=== PATIENT | male | born 1935 | race Caucasian/White ===

== ENCOUNTER 2022-11-15 12:35 | Inpatient (IN) ==
[2022-11-15] MEDS ORDERED: IOPAMIDOL 100 ML BOTTLE IV ONE (12:36)
[2022-11-15 13:09] LABS: POC Calcium, Ionized 1.13 (1.16-1.32); POC Creatinine 1.4 (0.6-1.2); POC Potassium 3.7 (3.3-5.1)
--- NOTE | 2022-11-15 13:35 | Emergency Department Note ---
GI Bleed HPI General Chief complaint: Rectal Bleed Stated complaint: blood in stool, fainting Time Seen by Provider: 11/15/22 12:40 Source: patient Mode of arrival: wheelchair Limitations: no limitations History of Present Illness HPI Narrative: Narrative: Patient presents the ED with complaints of blood in the stool x1 week. He states that his stools have been black and full of blood. He states this happened about a year ago and had a complete work-up and they could not determine what the source of the bleed was. He also reports that his syncopal event about 5 days ago where he fell down onto his bottom. He denies any head trauma, loss of consciousness, vision changes, nausea, vomiting, diarrhea, const ipation, lidya trauma, cardiac chest pain, shortness of breath, heart palpitations. Patient denies any other alleviating or aggravating factors. Related Data Home Medications Medication Instructions Recorded Confirmed losartan 50 mg tablet 50 mg PO QDAY 09/05/20 06/29/21 Previous Rx's Medication Instructions Recorded bupropion HCl 200 mg tablet,12 hr 200 mg PO QDAY #90 ea 04/21/19 sustained-release amlodipine 2.5 mg tablet 2.5 mg PO QPM 30 days #30 tabs 09/18/20 fluoxetine 10 mg capsule 10 mg PO QDAY 30 days #30 caps 09/18/20 fluoxetine 20 mg capsule 20 mg PO QDAY 30 days #30 caps 09/18/20 hydrocodone 5 mg-acetaminophen 325 1 tab PO Q4H PRN pain #12 tabs 04/30/21 mg tablet pantoprazole 40 mg tablet,delayed 40 mg PO QDAY 90 days #90 tabs 09/01/21 release Allergies Allergy/AdvReac Type Severity Reaction Status Date / Time No Known Drug Allergies Allergy Verified 11/15/22 12:42 Review of Systems ROS ROS Narrative: Narrative: All systems ED: reviewed and negative except as stated. [facility] Narrative Patient History Narrative: Narrative: Medical/Surgical/Family History All Active Problems (Updated 11/15/22 @ 14:46 by Agustin Hardwick DO) Syncope (Acute) Acute kidney injury (Acute) Rhabdomyolysis (Acute) Acute dehydration (Acute) Acute GI bleeding (Acute) Acute blood loss anemia (Acute) Claudication of left lower extremity (Acute) Tinea unguium (Chronic) Ingrowing nail (Chronic) Cellulitis of left toe (Chronic) Low back pain (Chronic) Generalized atherosclerosis (Chronic) Unspecified osteoarthritis, unspecified site (Chronic) Chest pain (Chronic) Disease of stomach and duodenum, unspecified (Chronic) Dyspnea (Chronic) Peptic ulcer (Chronic) Pancreatitis (Chronic ~2014) Joint pain (Chronic ~1989) Hyperlipidemia (Chronic ~1979) Hypertension (Chronic ~2015) Prostate cancer (Chronic ~1989) Bleeding tendency (Chronic) Anxiety (Chronic ~1999) Acid reflux (Chronic ~2016) Restless leg (Chronic) Previous back surgery (Chronic) H/O exploratory laparotomy (Chronic) H/O prostatectomy (Chronic) Rectal bleeding (Acute) SOB (shortness of breath) (Acute) Insomnia (Chronic) Elevated blood pressure, situational (Chronic) Depression (Chronic) History of alcohol abuse (Chronic) History of tobacco abuse (Chronic) History of pancreatitis (Chronic) History of GI bleed (Chronic) History of prostate cancer (Chronic) Medical History (Updated 11/15/22 @ 14:46 by Agustin Hardwick DO) Acid reflux (~2016) Allergic reaction Anemia Anxiety (~1999) Bleeding tendency Cellulitis of left toe Chest pain Claudication of left lower extremity Depression Disease of stomach and duodenum, unspecified Dyspnea Elevated blood pressure, situational Generalized atherosclerosis History of alcohol abuse History of GI bleed History of pancreatitis History of prostate cancer History of tobacco abuse Hyperlipidemia (~1979) Hypertension (~2015) Ingrowing nail Insomnia Joint pain (~1989) Low back pain Pancreatitis (~2014) Peptic ulcer Prostate cancer (~1989) Restless leg Tinea unguium Unspecified osteoarthritis, unspecified site Surgical History H/O exploratory laparotomy 2013 - no cancer found H/O prostatectomy 1991 History of colonoscopy (~2017) History of pancreatectomy Previous back surgery Lumbar back surgery in the late 1970s Family History Mother Hypertension Father Heart attack Brother CAD (coronary artery disease) Social History Smoking Status: Never smoker Alcohol Intake Frequency: former alcohol drinker Substance Use: does not use Exam Narrative Narrative: Narrative: General Limitations: no limitations General appearance: Absent in distress ENT ENT: Present normal oropharynx and mucous membranes moist Respiratory Respiratory: Present normal lung sounds bilaterally; Absent respiratory distress Cardiovascular Cardiovascular: Present regular rate and normal rhythm Adbominal Abdominal: Present soft and normal bowel sounds; Absent tenderness or rigidity Rectal Rectal: Present heme (+) stool; Absent hemorrhoids Extremities Extremities: Present normal capillary refill Back Back: Absent CVA tenderness (R) or CVA tenderness (L) Neurological Neurological: Present alert and oriented X3 Psychiatric Psychiatric: Present normal affect and normal mood Skin Skin: Present warm (WNL) and intact Course Course Course Narrative: Was evaluated for concerns of a GI bleed. Physical exam showed that patient definitely had some dark stools that were positive for blood. There were no external hemorrhoids. Labs show that his hemoglobin was 6.6 down from his previous of 12 on his last lab values. CT abdomen pelvis obtained with image reviewed myself negative for any active bleed. Diverticulitis, bowel ischemia were all considered and basically ruled out by the CT abdomen pelvis. Patient was given IV Protonix. 2 units of packed red blood cells were ordered for the patient. Case was discussed with general surgeon who has agreed to be consulted on the case for endoscopy. Case was discussed with hospitalist who has agreed to admit the patient. Plan of care was discussed with patient he expressed verbal understanding and agreement. Consultations Consultation #1: Case discussed with on-call general surgeon, Dr. Duffy, who has agreed to perform endoscopy if patient is admitted to the hospital service. Time: 14:15 Consultation #2: Case was discussed with hospitalist, Dr. Guevara, who has agreed to admit the patient. Time: 14:43 Vital Signs Vital signs: Vital Signs Temperature 97.0 F 11/15/22 12:37 Pulse Rate 76 11/15/22 12:37 Respiratory Rate 18 11/15/22 12:37 Blood Pressure 146/52 11/15/22 12:37 Pulse Oximetry (%) 95 11/15/22 12:37 Oxygen Delivery Method 11/15/22 12:37 Temperature 97.0 F 11/15/22 12:37 Pulse Rate 76 11/15/22 12:37 Respiratory Rate 12 11/15/22 13:46 Blood Pressure 116/49 11/15/22 13:46 Pulse Oximetry (%) 95 11/15/22 12:37 Oxygen Delivery Method 11/15/22 12:37 [facility] MDM Narrative Medical decision making narrative: Narrative: Differential Diagnosis Differential Diagnosis: GI bleed, diverticulitis Medical Records Medical records reviewed: Yes I reviewed the patient's medical records. Lab Data Lab results reviewed: Yes I reviewed the patient's lab results. Result diagrams: 11/15/22 13:01 Labs: Lab Results 11/15/22 11/15/22 Range/Units 13:01 13:04 WBC 9.4 (4.5-11.0) K/mcL RBC 2.18 L (4.63-6.08) M/mcL Hgb 6.6 L* (13.7-17.5) g/dL Hct 20.6 L* (40.1-51.0) % POC Hct 21.0 L (41-55) MCV 94.5 (80.0-100.0) fL MCH 30.3 (26.0-34.0) pg MCHC 32.0 (31.0-36.0) g/dL RDW 14.3 (11.5-14.5) % Plt Count 249 (140-440) K/mcL MPV 9.9 (8.8-12.5) fL Immature Gran % (Auto) 0.4 (0.0-0.5) % Neut % (Auto) 79.7 H (38.0-78.0) % Lymph % (Auto) 11.4 L (15.5-49.0) % [place] % (Auto) 8.0 (1.0-12.0) % Eos % (Auto) 0.3 (0.0-7.0) % Baso % (Auto) 0.2 (0.0-2.0) % Lymph # (Auto) 1.07 L (1.50-4.80) K/mcL [place] # (Auto) 0.75 (0.10-0.90) K/mcL Eos # (Auto) 0.03 (0.00-0.70) K/mcL Baso # (Auto) 0.02 (0.00-0.30) K/mcL Immature Gran # 0.04 (0.00-0.05) K/mcl Absolute Neutrophils 7.44 (1.80-8.00) K/mcL POC Sodium 139 (133-145) POC Potassium 3.7 (3.3-5.1) POC Chloride 107 (96-108) POC Total CO2 23.0 (22-30) POC BUN 25 H (6-20) POC Creatinine 1.4 H (0.6-1.2) POC Glucose 127 H (70-105) POC WB Ioniz Calcium 1.13 L (1.16-1.32) Radiology Data Radiology results reviewed: Yes I reviewed the patient's radiology results. Radiology results narrative: CT abdomen pelvis obtained with image reviewed myself, I agree with radiologist interpretation EKG Data EKG #1: EKG attestation: Yes I reviewed and interpreted this EKG. EKG shows normal: sinus rhythm Rate: normal Rhythm: PAC's [place]/QRS: normal Heart block present: None ST segment elevation in: None ST segment depression in: None QTc: normal QRS morphology: Present normal Interpretation: no acute changes Core Measures AMI Core Measures Followed: Yes Discharge Plan Patient/Caregiver Discharge Instructions Pt seen by SPRING ASSEMBLER/PA only: No Clinical Impression: Acute GI bleeding, Acute blood loss anemia Patient Disposition: Home, Self-Care Condition: Fair Follow up with: Anya Barger MD [Primary Care Provider] - Prescriptions: No Action bupropion HCl 200 mg tablet sustained-release 12 hr 200 mg PO QDAY Qty: 90 3RF amlodipine 2.5 mg tablet 2.5 mg PO QPM 30 Days Qty: 30 0RF Rx Instructions: for high blood pressure in the PM fluoxetine 10 mg capsule 10 mg PO QDAY 30 Days Qty: 30 0RF fluoxetine 20 mg capsule 20 mg PO QDAY 30 Days Qty: 30 0RF Rx Instructions: take with the 10mg capsule pantoprazole 40 mg tablet,delayed release (DR/EC) 40 mg PO QDAY 90 Days Qty: 90 0RF Rx Instructions: Patient needs follow up appt before refill ends losartan 50 mg tablet 50 mg PO QDAY hydrocodone-acetaminophen 5-325 mg tablet 1 tab PO Q4H PRN (Reason: pain) Qty: 12 0RF
[2022-11-15 13:55] LABS: Basophils # (Auto) 0.02 K/mcL (0.00-0.30); Basophils % (Auto) 0.2 % (0.0-2.0); Eosinophils # (Auto) 0.03 K/mcL (0.00-0.70); Eosinophils % (Auto) 0.3 % (0.0-7.0); Hematocrit 20.6 % (40.1-51.0); Hemoglobin 6.6 g/dL (13.7-17.5); Lymphocytes # (Auto) 1.07 K/mcL (1.50-4.80); Lymphocytes % (Auto) 11.4 % (15.5-49.0); Mean Cell Volume 94.5 fL (80.0-100.0); Mean Platelet Volume 9.9 fL (8.8-12.5); Monocytes # (Auto) 0.75 K/mcL (0.10-0.90); Neutrophils % (Auto) 79.7 % (38.0-78.0); Platelet Count 249 K/mcL (140-440); RBC 2.18 M/mcL (4.63-6.08); Red Cell Distribution Width 14.3 % (11.5-14.5); WBC 9.4 K/mcL (4.5-11.0)
[2022-11-15] MEDS ORDERED: PANTOPRAZOLE 40 MG VIAL IV ONE (13:58)
--- NOTE | 2022-11-15 14:34 | Cat Scan Report ---
History: Rectal bleeding for one week, prior prostate cancer TECHNIQUE: Abdomen was first imaged without contrast from the diaphragm through the symphysis pubis. Intravenous nonionic contrast was injected. The patient was then rescanned during the arterial and venous phase. Sagittal, coronal and MIPS images were created. The radiation exposure was limited using dose reduction technology. FINDINGS: Lung bases are clear. Liver is normal in size. There is gas within the intrahepatic bile ducts as well as the common bile duct. This is probably secondary to a prior papillotomy at the time of the prior cholecystectomy. The gallbladder has been removed. The bile ducts are not dilated and there is no inflammation in the the nella hepatis. The pancreas is normal without evidence of a mass or inflammation. The spleen is normal in size and homogeneous. The adrenals are normal. A 1.7 cm cortical cyst is present laterally in the middle third of the right kidney. The kidneys are otherwise normal and there is no stone mass or hydronephrosis. Abdominal aorta is normal in caliber. There is a patent stent in the superior mesenteric artery. There is good blood flow into the superior mesenteric. There is eccentric plaque at the origin of the celiac artery but there is no stenosis. Inferior mesenteric artery is normal. There are two arteries supplying each kidney, which are normal in caliber. The peripheral branches of the visceral arteries appear normal and nonthrombosed. No enhancing lesion or vascular anomaly are seen. Large and small intestine are normal without apparent mass or colitis. There are noninflamed diverticula in the sigmoid colon. The prostate has been removed and there are several surgical clips deep in the pelvis. Urinary bladder is unopacified but appears normal. No ascites mass or adenopathy are present within the abdomen or pelvis. Bone windows show no lytic or blastic lesion. There is degenerative disc disease and arthritis at multiple levels in the lumbar spine and lower thoracic spine. IMPRESSION: No evidence of active gastrointestinal bleeding. The source of bleeding is not identified on this study. Diverticulosis without diverticulitis Air within the bile ducts which may be secondary to the prior cholecystectomy and probable papillotomy Dr. Hardwick was called with the report Interpreted and Authenticated by: Porter Gray 11/15/22
--- NOTE | 2022-11-15 15:13 | Internal Med History&Physical ---
HPI History of Present Illness Patient information: Note initiated : 11/15/22 at 3:10 pm Service Date, if different from initiated Date: [] Patient: Martínez Tony a 87 y/o M admitted on for blood in stool, fainting. Chief Complaint: [black stool] Chief complaint: black stool History of present illness: Mr. Tony is a 87 year old M history of hypertensions, anxiety, presenting with 1 week history of black stool. In addition, he had an episode of syncope 4 days ago. Last prior episode of GI bleeding was 1 and half years ago. Over the past week, he has noticed black stool. He denies any bloody stool. He denies any abdominal pain. He has nausea but denies any vomiting or hematemesis. He denies any chest pain. He denies any palpitations. He is complaining of mild shortness of breath. He had an episode of syncope and he passed out for around 5 hours 4 days ago. He stated that he has been taking aspirin for pain lately. Vital signs at ED presentation cervical for borderline hypotension's. Labs significant for anemia with H&H 6.6 and 20.6, respectively. BUN/Cr 25/1.4. Stool occult blood screening positive. Admission requested called for GI bleeding with symptomatic anemia. Constitutional Constitutional: Present weakness; Absent chills, excessive sweating, fatigue or fever(s) EENT Eyes: Absent blurry vision, change in vision, loss of vision or other visual disturbances Ears: Absent decreased hearing or tinnitus Nose, mouth and throat: Absent abnormal hearing, dry mouth, headache(s), nasal congestion or sore throat Cardiovascular Cardiovascular: Absent chest pain, chest pain at rest, edema, irregular heart rhythm or palpatations Respiratory Respiratory: Present dyspnea; Absent cough or wheezing Gastrointestinal Gastrointestinal: Present melena; Absent abdominal pain, constipation, diarrhea, nausea or vomiting Musculoskeletal Musculoskeletal: Absent back pain, deformity, limited range of motion, muscle cramps, muscle weakness or numbness Integumentary Integumentary: Absent lesions, rash or wounds Neurological Neurological: Present syncope; Absent focal weakness, headache(s) or numbness Psychiatric Psychiatric: Absent anxiety, depression or hallucinations PFSH PFSH All Active Problems (Updated 11/15/22 @ 15:17 by David Chavez MD) Stage 1 acute kidney injury (Acute) Syncope (Acute) Acute kidney injury (Acute) Rhabdomyolysis (Acute) Acute dehydration (Acute) Acute GI bleeding (Acute) Acute blood loss anemia (Acute) Claudication of left lower extremity (Acute) Tinea unguium (Chronic) Ingrowing nail (Chronic) Cellulitis of left toe (Chronic) Low back pain (Chronic) Generalized atherosclerosis (Chronic) Unspecified osteoarthritis, unspecified site (Chronic) Chest pain (Chronic) Disease of stomach and duodenum, unspecified (Chronic) Dyspnea (Chronic) Peptic ulcer (Chronic) Pancreatitis (Chronic ~2014) Joint pain (Chronic ~1989) Hyperlipidemia (Chronic ~1979) Hypertension (Chronic ~2015) Prostate cancer (Chronic ~1989) Bleeding tendency (Chronic) Anxiety (Chronic ~1999) Acid reflux (Chronic ~2016) Restless leg (Chronic) Previous back surgery (Chronic) H/O exploratory laparotomy (Chronic) H/O prostatectomy (Chronic) Rectal bleeding (Acute) SOB (shortness of breath) (Acute) Insomnia (Chronic) Elevated blood pressure, situational (Chronic) Depression (Chronic) History of alcohol abuse (Chronic) History of tobacco abuse (Chronic) History of pancreatitis (Chronic) History of GI bleed (Chronic) History of prostate cancer (Chronic) Medical History (Updated 11/15/22 @ 15:17 by David Chavez MD) Acid reflux (~2016) Allergic reaction Anemia Anxiety (~1999) Bleeding tendency Cellulitis of left toe Chest pain Claudication of left lower extremity Depression Disease of stomach and duodenum, unspecified Dyspnea Elevated blood pressure, situational Generalized atherosclerosis History of alcohol abuse History of GI bleed History of pancreatitis History of prostate cancer History of tobacco abuse Hyperlipidemia (~1979) Hypertension (~2015) Ingrowing nail Insomnia Joint pain (~1989) Low back pain Pancreatitis (~2014) Peptic ulcer Prostate cancer (~1989) Restless leg Tinea unguium Unspecified osteoarthritis, unspecified site Surgical History H/O exploratory laparotomy 2013 - no cancer found H/O prostatectomy 1991 History of colonoscopy (~2017) History of pancreatectomy Previous back surgery Lumbar back surgery in the late 1970s Family History Mother Hypertension Father Heart attack Brother CAD (coronary artery disease) Social History household members: alone housing: house lives independently: Yes marital status: education level: vocational service: Yes ([id number]) branch: [employer] occupational status: retired 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, post office, retired in 1998 eating out: rarely or never physical activity: walking smoking status: Never smoker alcohol intake frequency: former alcohol drinker substance use type: does not use robbin/faith: None seatbelt use: always MEDS/ALLERGIES Home Medications and Allergies Home Medications Medication Instructions Recorded Confirmed Type bupropion HCl 200 mg tablet,12 hr 200 mg PO QDAY #90 ea 04/21/19 09/05/20 Rx sustained-release losartan 50 mg tablet 50 mg PO QDAY 09/05/20 06/29/21 History amlodipine 2.5 mg tablet 2.5 mg PO QPM 30 days #30 tabs 09/18/20 06/29/21 Rx fluoxetine 10 mg capsule 10 mg PO QDAY 30 days #30 caps 09/18/20 Rx fluoxetine 20 mg capsule 20 mg PO QDAY 30 days #30 caps 09/18/20 Rx hydrocodone 5 mg-acetaminophen 325 1 tab PO Q4H PRN pain #12 tabs 04/30/21 06/29/21 Rx mg tablet pantoprazole 40 mg tablet,delayed 40 mg PO QDAY 90 days #90 tabs 09/01/21 Rx release Allergies Allergy/AdvReac Type Severity Reaction Status Date / Time No Known Drug Allergies Allergy Verified 11/15/22 12:42 EXAM Constitutional Vitals: Temp Pulse Resp BP Pulse Ox O2 Del Method 36.1 C 59 L 12 126/50 100 11/15/22 12:37 11/15/22 14:38 11/15/22 13:46 11/15/22 14:38 11/15/22 14:38 11/15/22 12:37 General appearance: cooperative and no acute distress Head Head exam: Present atraumatic and normocephalic Eye Eye exam: Present EOMI and PERRL ENT ENT exam: Present mucous membranes moist, normal exam and normal external ear exam Neck Neck exam: Present normal inspection; Absent lymphadenopathy, tenderness or thyromegaly Respiratory Respiratory exam: Absent accessory muscle use, respiratory distress or wheezes Cardiovascular Cardiovascular exam: Present normal rate and rhythm; Absent JVD GI/Abdominal GI/Abdominal exam: Present normal bowel sounds, soft and tenderness; Absent organomegaly Rectal Rectal exam: Present deferred Extremities Exam Extremities exam: Present full ROM, normal capillary refill and normal inspection; Absent tenderness Neurological Exam Neurological exam: Present alert, CN II-XII intact and oriented X3; Absent motor sensory deficit Psychiatric Psychiatric exam: Present normal affect and normal mood; Absent anxious or depressed Skin Skin exam: Present dry and intact DATA Data Completed and Pending Labs: Labs from last 24 hours 11/15/22 11/15/22 13:04 13:01 WBC 9.4 RBC 2.18 L Hgb 6.6 L* Hct 20.6 L* POC Hct 21.0 L MCV 94.5 MCH 30.3 MCHC 32.0 RDW 14.3 Plt Count 249 MPV 9.9 Immature Gran % (Auto) 0.4 Neut % (Auto) 79.7 H Lymph % (Auto) 11.4 L [place] % (Auto) 8.0 Eos % (Auto) 0.3 Baso % (Auto) 0.2 Lymph # (Auto) 1.07 L [place] # (Auto) 0.75 Eos # (Auto) 0.03 Baso # (Auto) 0.02 Immature Gran # 0.04 Absolute Neutrophils 7.44 POC Sodium 139 POC Potassium 3.7 POC Chloride 107 POC Total CO2 23.0 POC BUN 25 H POC Creatinine 1.4 H POC Glucose 127 H POC WB Ioniz Calcium 1.13 L A/P Assessment and plan (1) Acute GI bleeding: Status: Acute (2) Stage 1 acute kidney injury: Status: Acute (3) Syncope: Status: Acute Qualifiers: Syncope type: unspecified Qualified Code(s): R55 - Syncope and collapse (4) Hypertension: Status: Chronic Qualifiers: Hypertension type: unspecified Qualified Code(s): I10 - Essential (primary) hypertension (5) Anxiety: Status: Chronic Narrative A/P Narrative: Assessment and Plans: 1. GI bleeding with associated symptomatic anemia: Inpatient PCU Consult Dr. Duffy for potential EGD/coloscopy Hold ASA/NSAIDs Protonix 40mg IV BID NPO with IV fluid NS@100cc/hr 2 unit pRBC transfusion, serial H/H monitoring 2. Recent syncope: Likely secondary to GI bleeding and anemia, see #1 3. h/o essential hypertension: Currently borderline blood pressure, hold oral antihypertensives for now 4. h/o Anxiety: Bupropion Fluoxetine 5. Stage 1 acute kidney injury: Avoid nephrotoxic agents IV fluid NS@100cc/hr CMP in the morning to trend kidney functions GI ppx: Protonix DVT ppx: SCDs Code status: Full Prognosis: guarded Disposition: inpatient PCU Time Spent With Patient Time: Total time spent is greater than 50% in coordination of care (as documented) at patient's floor/unit and/or counseling patient: Initial: Total time with patient: 55 - 74 minutes
[2022-11-15] MEDS ORDERED: ONDANSETRON 4 MG/2 ML VIAL IV PRN (15:55)
[2022-11-15] MEDS ORDERED: morphine 2 MG/ML VIAL IV PRN (15:55)
[2022-11-15] MEDS ORDERED: IPRATROPIUM/ALBUTEROL 3 ML AMPUL.NEB NEB PRN (15:55)
[2022-11-15] MEDS ORDERED: SENNOSIDES 1 TABLET PO PRN (15:55)
[2022-11-15] MEDS ORDERED: LACTULOSE 20 GM/30 ML ORAL.SOL PO PRN (15:55)
[2022-11-15] MEDS ORDERED: traZODone HCL 50 MG TABLET PO PRN (15:55)
[2022-11-15] MEDS ORDERED: oxyCODONE/APAP 5/325MG TABLET PO PRN (15:55)
[2022-11-15] MEDS ORDERED: ACETAMINOPHEN 325 MG TABLET PO PRN (15:55)
[2022-11-15] MEDS: 0.9 % SODIUM CHLORIDE 1,000 ML IV SCH (16:10)
[2022-11-15 16:34] LABS: Prothrombin Time 13.6 sec (11.9-14.5)
[2022-11-15] MEDS: PANTOPRAZOLE 40 MG VIAL IV SCH (17:45)
[2022-11-15] MEDS ORDERED: PEG 3350/NA SULF,BICARB,CL/KCL 4,000 ML ORAL.SOL PO ONE (18:53)
[2022-11-15] MEDS ORDERED: PEG 3350/NA SULF,BICARB,CL/KCL 4,000 ML ORAL.SOL ONE (20:31)
[2022-11-15] MEDS: 0.9 % SODIUM CHLORIDE 10 ML SYRINGE IV SCH (20:33)
[2022-11-15] MEDS ORDERED: traZODone HCL 50 MG TABLET PO SCH (21:00)
[2022-11-16 00:45] LABS: Hematocrit 31.4 % (40.1-51.0); Hemoglobin 10.1 g/dL (13.7-17.5)
[2022-11-16] MEDS: 0.9 % SODIUM CHLORIDE 1,000 ML IV SCH ×2 (02:01→10:47)
[2022-11-16] MEDS: 0.9 % SODIUM CHLORIDE 10 ML SYRINGE IV SCH (05:23)
[2022-11-16 06:41] LABS: Basophils # (Auto) 0.02 K/mcL (0.00-0.30); Basophils % (Auto) 0.2 % (0.0-2.0); Eosinophils # (Auto) 0.08 K/mcL (0.00-0.70); Hematocrit 28.7 % (40.1-51.0); Hemoglobin 9.1 g/dL (13.7-17.5); Lymphocytes # (Auto) 1.54 K/mcL (1.50-4.80); Lymphocytes % (Auto) 19.1 % (15.5-49.0); Mean Cell Volume 93.5 fL (80.0-100.0); Mean Corpuscular HGB Conc 31.7 g/dL (31.0-36.0); Mean Platelet Volume 9.8 fL (8.8-12.5); Monocytes # (Auto) 0.98 K/mcL (0.10-0.90); Monocytes % (Auto) 12.2 % (1.0-12.0); Neutrophils % (Auto) 67.1 % (38.0-78.0); Platelet Count 190 K/mcL (140-440); RBC 3.07 M/mcL (4.63-6.08); Red Cell Distribution Width 14.6 % (11.5-14.5); WBC 8.1 K/mcL (4.5-11.0)
--- NOTE | 2022-11-16 07:07 | EKG ---
[facility] Test Date: 2022-11-15 Pat Name: Martínez Tony Department: ED Room: Gender: Male Plant Reliability Engineer: DONNIE : 1935 Requested By: Agustin Hardwick Order Number: [id number] Reading MD: Martínez Gray M.D. Measurements Intervals [place] Rate: 79 P: -18 MA: 141 QRS: 20 QRSD: 86 T: 78 QT: 376 QTc: 431 Interpretive Statements Sinus rhythm Atrial premature complexes Abnormal R-wave progression, early transition Nonspecific repol abnormality, diffuse leads Electronically Signed On 11-16-2022 7:07:04 PST by Martínez Gray M.D. /store/[email or web address]/[id number]
[2022-11-16] MEDS: PANTOPRAZOLE 40 MG VIAL IV SCH (07:26)
[2022-11-16 07:32] LABS: ALT/SGPT 14 U/L (<40); AST/SGOT 20 U/L (<40); Albumin 3.2 gm/dL (3.2-5.2); Albumin/Globulin Ratio 1.6 (1.0-2.3); Alkaline Phosphatase 61 U/L (39-117); Bilirubin,Total 0.3 mg/dL (0.1-1.0); Blood Urea Nitrogen 20 mg/dL (8-23); Carbon Dioxide 21 mmol/L (22-30); Chloride 109 mmol/L (96-108); Glomerular Filtration Rate 60; Glucose 87 mg/dL (70-105)
[2022-11-16] MEDS ORDERED: PROPOFOL 200 MG/20 ML VIAL IV ONE (08:27)
[2022-11-16] MEDS ORDERED: fentaNYL 100 MCG/2 ML VIAL IV ONE (08:27)
[2022-11-16] MEDS ORDERED: FLUoxetine HCL 20 MG CAPSULE PO SCH (09:00)
[2022-11-16] MEDS ORDERED: OLMESARTAN MEDOXOMIL 20 MG TABLET PO SCH (09:00)
[2022-11-16] MEDS ORDERED: buPROPion 100 MG TAB.SR.12H PO SCH (09:00)
[2022-11-16] MEDS ORDERED: AMLODIPINE VALSARTAN PO SCH (09:00)
[2022-11-16] MEDS ORDERED: amLODIPine 10 MG TABLET PO SCH (09:00)
--- NOTE | 2022-11-16 09:09 | General Surgery Consult Note ---
HPI Date of Consult Consult Date: 11/15/22 Primary Care Provider: Ayna Barger Consult Narrative Patient Information: Note initiated : 11/16/22 at 9:06 am Service Date, if different from initiated Date: [11/15/22] Patient: Martínez Tony 87 y/o M admitted on 11/15/22 for blood in stool, fainting; GI bleed. Patient is a pleasant gentleman who reports several days 3 of dark melanotic stools. He was brought to the emergency room where his hemoglobin was low at 6, he got 2 units of blood placed in the ICU and I was asked to see the patient for scopes. Patient reports a prior history about a year ago, he was admitted to symptoms and then was scoped as an outpatient. That EGD and colonoscopy were both negative at that time. Patient was seen and examined 11/15/2022 at 1800. Chief Complaint: [] Chief complaint: GI bleed Reason for consult: This is a pleasant 87-year-old gentleman who is admitted with a GI bleed. cc:: CC: David Chavez MD Review of Systems Review of systems: All systems reviewed, negative other than above PFSH PFSH All Active Problems (Updated 11/15/22 @ 15:17 by David Chavez MD) Stage 1 acute kidney injury (Acute) Syncope (Acute) Acute kidney injury (Acute) Rhabdomyolysis (Acute) Acute dehydration (Acute) Acute GI bleeding (Acute) Acute blood loss anemia (Acute) Claudication of left lower extremity (Acute) Tinea unguium (Chronic) Ingrowing nail (Chronic) Cellulitis of left toe (Chronic) Low back pain (Chronic) Generalized atherosclerosis (Chronic) Unspecified osteoarthritis, unspecified site (Chronic) Chest pain (Chronic) Disease of stomach and duodenum, unspecified (Chronic) Dyspnea (Chronic) Peptic ulcer (Chronic) Pancreatitis (Chronic ~2014) Joint pain (Chronic ~1989) Hyperlipidemia (Chronic ~1979) Hypertension (Chronic ~2015) Prostate cancer (Chronic ~1989) Bleeding tendency (Chronic) Anxiety (Chronic ~1999) Acid reflux (Chronic ~2016) Restless leg (Chronic) Previous back surgery (Chronic) H/O exploratory laparotomy (Chronic) H/O prostatectomy (Chronic) Rectal bleeding (Acute) SOB (shortness of breath) (Acute) Insomnia (Chronic) Elevated blood pressure, situational (Chronic) Depression (Chronic) History of alcohol abuse (Chronic) History of tobacco abuse (Chronic) History of pancreatitis (Chronic) History of GI bleed (Chronic) History of prostate cancer (Chronic) Medical History (Updated 11/15/22 @ 15:17 by David Chavez MD) Acid reflux (~2016) Allergic reaction Anemia Anxiety (~1999) Bleeding tendency Cellulitis of left toe Chest pain Claudication of left lower extremity Depression Disease of stomach and duodenum, unspecified Dyspnea Elevated blood pressure, situational Generalized atherosclerosis History of alcohol abuse History of GI bleed History of pancreatitis History of prostate cancer History of tobacco abuse Hyperlipidemia (~1979) Hypertension (~2015) Ingrowing nail Insomnia Joint pain (~1989) Low back pain Pancreatitis (~2014) Peptic ulcer Prostate cancer (~1989) Restless leg Tinea unguium Unspecified osteoarthritis, unspecified site Surgical History H/O exploratory laparotomy 2013 - no cancer found H/O prostatectomy 1991 History of colonoscopy (~2017) History of pancreatectomy Previous back surgery Lumbar back surgery in the late 1970s Family History Mother Hypertension Father Heart attack Brother CAD (coronary artery disease) Social History household members: alone housing: house lives independently: Yes marital status: education level: vocational service: Yes ([id number]) branch: [employer] occupational status: retired 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, [employer], retired in 1998 eating out: rarely or never physical activity: walking smoking status: Former smoker quit date: 12/11/84 alcohol intake frequency: former alcohol drinker substance use type: does not use robbin/denominational: None seatbelt use: always MEDS/ALLERGIES Home Medications and Allergies Home Medications Medication Instructions Recorded Confirmed Type bupropion HCl 200 mg tablet,12 hr 200 mg PO QDAY #90 ea 04/21/19 11/15/22 Rx sustained-release fluoxetine 20 mg capsule 20 mg PO QDAY 30 days #30 caps 09/18/20 11/15/22 Rx amlodipine 10 mg-valsartan 320 mg 1 tab PO QDAY 11/15/22 11/15/22 History tablet trazodone 50 mg tablet 1 tab PO QPM 11/15/22 11/15/22 History Allergies Allergy/AdvReac Type Severity Reaction Status Date / Time No Known Drug Allergies Allergy Verified 11/15/22 12:42 Physical Examination Vital Signs Vital signs: Temp Pulse Resp BP Pulse Ox O2 Del Method O2 Flow Rate 97.3 F 70 18 142/63 100 0 11/16/22 08:01 11/16/22 08:01 11/16/22 08:01 11/16/22 08:01 11/16/22 08:01 11/16/22 08:01 11/16/22 04:02 General physical appearance General physical exam: well developed, well nourished and no distress Eyes Eye exam: PERRL and normal ocular movement ENT ENT exam: normal pinna, normal nares, normal mucosa, no hearing loss and no congestion Head Head exam IM: Present atraumatic and normocephalic Neck Neck exam: no masses, no bruits, trachea midline, no lymphadenopathy and no venous distension Cardiovascular Cardiovascular exam IM: Present normal rate and rhythm Respiratory Respiratory exam: normal expansion, normal respiratory effort, clear to pe rcussion and clear to auscultation Abdomen Abdomen: Present soft, non tender and bowel sounds Hernia: Present none Genitourinary Genitourinary (Male): Present normal penis with no external lesions Rectum Rectum: Present normal sphincter tone, no hemorrhoids, no tenderness, no masses and no bleeding Integumentary Integumentary: Present no rash, no growths and no abnormal pigmentation Neurologic Neurologic: Present normal coordination and normal sensation Musculoskeletal Musculoskeletal: Present normal gait and normal posture Psychiatric Psychiatric: Present oriented to time, oriented to person, oriented to place, speech is normal and memory intact Results Labs Result diagrams: 11/16/22 05:23 11/16/22 05:22 Labs: Abnormal lab results 11/15/22 11/15/22 11/15/22 Range/Units 00:18 13:01 13:04 RBC 2.18 L (4.63-6.08) M/mcL Hgb 10.1 L 6.6 L* (13.7-17.5) g/dL Hct 31.4 L 20.6 L* (40.1-51.0) % POC Hct 21.0 L (41-55) RDW (11.5-14.5) % Neut % (Auto) 79.7 H (38.0-78.0) % Lymph % (Auto) 11.4 L (15.5-49.0) % Laurens % (Auto) (1.0-12.0) % Lymph # (Auto) 1.07 L (1.50-4.80) K/mcL Lau[place] # (Auto) (0.10-0.90) K/mcL Chloride (96-108) mmol/L Carbon Dioxide (22-30) mmol/L POC BUN 25 H (6-20) POC Creatinine 1.4 H (0.6-1.2) POC Glucose 127 H (70-105) Calcium (8.6-10.4) mg/dL POC WB Ioniz Calcium 1.13 L (1.16-1.32) Total Protein (5.9-8.4) gm/dL Globulin (2.2-3.7) gm/dL 11/16/22 11/16/22 Range/Units 05:22 05:23 RBC 3.07 L (4.63-6.08) M/mcL Hgb 9.1 L (13.7-17.5) g/dL Hct 28.7 L (40.1-51.0) % POC Hct (41-55) RDW 14.6 H (11.5-14.5) % Neut % (Auto) (38.0-78.0) % Lymph % (Auto) (15.5-49.0) % Laurens % (Auto) 12.2 H (1.0-12.0) % Lymph # (Auto) (1.50-4.80) K/mcL Laurens # (Auto) 0.98 H (0.10-0.90) K/mcL Chloride 109 H (96-108) mmol/L Carbon Dioxide 21 L (22-30) mmol/L POC BUN (6-20) POC Creatinine (0.6-1.2) POC Glucose (70-105) Calcium 8.0 L (8.6-10.4) mg/dL POC WB Ioniz Calcium (1.16-1.32) Total Protein 5.2 L (5.9-8.4) gm/dL Globulin 2.0 L (2.2-3.7) gm/dL Diabetes panel 11/16/22 Range/Units 05:22 Sodium 139 (133-145) mmol/L Potassium 3.9 (3.3-5.1) mmol/L Chloride 109 H (96-108) mmol/L Carbon Dioxide 21 L (22-30) mmol/L BUN 20 (8-23) mg/dL Creatinine 1.1 (0.7-1.2) mg/dL Glucose 87 (70-105) mg/dL Calcium 8.0 L (8.6-10.4) mg/dL AST 20 (<40) U/L ALT 14 (<40) U/L Alkaline Phosphatase 61 (39-117) U/L Total Protein 5.2 L (5.9-8.4) gm/dL Albumin 3.2 (3.2-5.2) gm/dL Calcium panel 11/16/22 Range/Units 05:22 Calcium 8.0 L (8.6-10.4) mg/dL Albumin 3.2 (3.2-5.2) gm/dL Pituitary panel 11/16/22 Range/Units 05:22 Sodium 139 (133-145) mmol/L Potassium 3.9 (3.3-5.1) mmol/L Chloride 109 H (96-108) mmol/L Carbon Dioxide 21 L (22-30) mmol/L BUN 20 (8-23) mg/dL Creatinine 1.1 (0.7-1.2) mg/dL Glucose 87 (70-105) mg/dL Calcium 8.0 L (8.6-10.4) mg/dL Adrenal panel 11/16/22 Range/Units 05:22 Sodium 139 (133-145) mmol/L Potassium 3.9 (3.3-5.1) mmol/L Chloride 109 H (96-108) mmol/L Carbon Dioxide 21 L (22-30) mmol/L BUN 20 (8-23) mg/dL Creatinine 1.1 (0.7-1.2) mg/dL Glucose 87 (70-105) mg/dL Calcium 8.0 L (8.6-10.4) mg/dL Total Bilirubin 0.3 (0.1-1.0) mg/dL AST 20 (<40) U/L ALT 14 (<40) U/L Alkaline Phosphatase 61 (39-117) U/L Total Protein 5.2 L (5.9-8.4) gm/dL Albumin 3.2 (3.2-5.2) gm/dL All other labs normal. A/P Assessment and plan (1) Stage 1 acute kidney injury: Status: Acute (2) Syncope: Status: Acute Qualifiers: Syncope type: unspecified Qualified Code(s): R55 - Syncope and collapse (3) Acute dehydration: Status: Acute (4) Acute GI bleeding: Status: Acute Plan This is a pleasant 87-year-old gentleman who presents with dark melanotic sto ols. Risk, benefits, alternatives to EGD and colonoscopy discussed with him at length. He verbalizes understanding, all of his questions answered he desires to. Plan: EGD colonoscopy tomorrow morning with anesthesia. Time Spent With Patient Time: Total time spent is greater than 50% in coordination of care (as documented) at patient's floor/unit and/or counseling patient:
--- NOTE | 2022-11-16 09:11 | Colonoscopy Procedure Note ---
Colonoscopy Procedure Notes Procedure Information Patient information: Note initiated : 11/16/22 at 9:09 am Patient: Martínez Tony 87 y/o M admitted on 11/15/22 for blood in stool, fainting; GI bleed. Date of Procedure: 11/16/22 Pre-op diagnosis general: GI bleed Post-op diagnosis: Normal EGD and colonoscopy Procedure: Colonoscopy with Anesthesia Procedure narrative: After risk benefits and alternatives to the procedure were discussed with the patient at length he verbalized understanding and desire to continue with the procedure. Patient was taken to endoscopy and placed supine on the endoscopy table. Monitored anesthesia care was administered throughout the case. Digital rectal exam was performed which was within normal limits. An adult colonoscope was advanced under direct vision to the cecum which was identified by the miccosukee's foot, the appendiceal orifice and opening to the terminal ileum. Full exam upon removal of scope was significant for scattered diverticulosis, no evidence of bleed. Withdraw time was >8 min. Retroflexion in the rectum was within normal limits. Anesthesia: MAC Findings: Normal colonoscopy Complications: none Surgeon: Anselmo Duffy Estimated blood loss: 0 Condition: stable Disposition: ICU Assessment: Normal colonoscopy, no evidence of bleed. Sigmoid diverticulosis without evidence of bleed. May advance diet, clear for discharge from a surgical standpoint.
--- NOTE | 2022-11-16 09:12 | EGD Procedure Note ---
EGD Procedure Notes Procedure Information Patient information: Note initiated : 11/16/22 at 9:11 am Patient: Martínez Tony 87 y/o M admitted on 11/15/22 for blood in stool, fainting; GI bleed. Date of Procedure: 11/16/22 Pre-Op Diagnosis: GI bleed Post-Op Diagnosis: Normal EGD and colonoscopy Procedure: Esophagogastroduodenoscopy Procedure Narrative: After risk benefits and alternatives to the procedure were discussed with the patient at length he verbalized understanding and desire to continue with the procedure. Patient was taken to endoscopy. Surgical timeout was taken to verify patient and procedure being performed, monitored anesthesia care was administered throughout the case. An adult gastroscope was entered and advanced under direct vision into the second portion of the duodenum. The antrum was fully inspected, the scope was retroflexed in the stomach. Full examination revealed normal EGD, no evidence of bleed. The GE junction was at 35 cm and the esophagus was normal on full exam. EBL none. Patient tolerated procedure well. Anesthesia: MAC Findings: Normal EGD Complications: none Surgeon: Anselmo Duffy Specimens Removed/Pathology: none sent Condition: stable Disposition: PACU Assessment: Normal EGD without evidence of bleed.
--- NOTE | 2022-11-16 12:42 | Discharge Summary ---
Discharge Provider Provider IMPORTANT FOLLOW-UP INFORMATION FOR PCP: Patient information: Note initiated : 11/16/22 at 12:38 pm Service Date, if different from initiated Date: [] Patient: Martínez Tony 87 y/o M admitted on 11/15/22 for blood in stool, fainting; GI bleed. Chief Complaint: [] Date of admission: 11/15/22 15:55 Discharge date: 11/16/22 Primary care physician: Anya Barger Attending physician on admission: David Chavez Consults: 11/15/22 14:05 Consult to Physician [CONS] Stat Comment: Consulting Provider: David Chavez Reason For Exam: Physician to Consult Consult to Physician [CONS] Stat Comment: Consulting Provider: Anselmo Duffy Reason For Exam: Physician to Consult Attending physician on discharge: David Chavez COURSE Hospital Course Hospital course: Mr. Tony is a 87 year old M history of hypertensions, anxiety, presenting with 1 week history of black stool. In addition, he had an episode of syncope 4 days ago. Last prior episode of GI bleeding was 1 and half years ago. Over the past week, he has noticed black stool. He denies any bloody stool. He denies any abdominal pain. He has nausea but denies any vomiting or hematemesis. He denies any chest pain. He denies any palpitations. He is complaining of mild shortness of breath. He had an episode of syncope and he passed out for around 5 hours 4 days ago. He stated that he has been taking aspirin for pain lately. Vital signs at ED presentation cervical for borderline hypotension's. Labs significant for anemia with H&H 6.6 and 20.6, respectively. BUN/Cr 25/1.4. Stool occult blood screening positive. Admission requested called for GI bleeding with symptomatic anemia. 11/16: s/p 2 unit pRBC transfusion, hemoglobin hematocrit 9.1/28.1. s/p EGD and colonoscopy by Dr. Duffy, no source of bleeding found. Normal EGD/colonoscopy only found diverticulosis. Decision made to discharge patient home. Follow up appointment made for him. Rx sent to pharmacy. All questions were answered prior to patient being physically discharged. Discharge diagnosis: GI bleeding Time Spent with Patient Time attestation: Total time spent providing and/or coordinating discharge services: Time spent: Less than 30 minutes EXAM Constitutional Vitals: Temp Pulse Resp BP Pulse Ox O2 Del Method O2 Flow Rate 36.1 C 66 15 137/58 98 5 11/16/22 12:00 11/16/22 12:00 11/16/22 12:00 11/16/22 12:00 11/16/22 12:00 11/16/22 12:00 11/16/22 09:12 General appearance: cooperative and no acute distress Head Head exam: Present atraumatic and normocephalic Eye Eye exam: Present EOMI and PERRL ENT ENT exam: Present mucous membranes moist, normal exam and normal external ear exam Neck Neck exam: Present normal inspection; Absent lymphadenopathy, tenderness or thyromegaly Respiratory Respiratory exam: Absent accessory muscle use, respiratory distress or wheezes Cardiovascular Cardiovascular exam: Present normal rate and rhythm; Absent JVD GI/Abdominal GI/Abdominal exam: Present normal bowel sounds and soft; Absent organomegaly or tenderness Rectal Rectal exam: Present deferred Extremities Exam Extremities exam: Present full ROM, normal capillary refill and normal inspection; Absent tenderness Neurological Exam Neurological exam: Present alert, CN II-XII intact and oriented X3; Absent motor sensory deficit Psychiatric Psychiatric exam: Present normal affect and normal mood; Absent anxious or depressed Skin Skin exam: Present dry and intact Discharge Data Data Completed and Pending Labs on day of discharge: Labs from last 24 hours 11/16/22 11/16/22 11/15/22 05:23 05:22 13:04 WBC 8.1 RBC 3.07 L Hgb 9.1 L Hct 28.7 L POC Hct 21.0 L MCV 93.5 MCH 29.6 MCHC 31.7 RDW 14.6 H Plt Count 190 MPV 9.8 Immature Gran % (Auto) 0.4 Neut % (Auto) 67.1 Lymph % (Auto) 19.1 Mckenzie % (Auto) 12.2 H Eos % (Auto) 1.0 Baso % (Auto) 0.2 Lymph # (Auto) 1.54 Mckenzie # (Auto) 0.98 H Eos # (Auto) 0.08 Baso # (Auto) 0.02 Immature Gran # 0.03 Absolute Neutrophils 5.41 PT INR POC Sodium 139 Sodium 139 POC Potassium 3.7 Potassium 3.9 POC Chloride 107 Chloride 109 H Carbon Dioxide 21 L POC Total CO2 23.0 Anion Gap 9.0 POC BUN 25 H BUN 20 Creatinine 1.1 POC Creatinine 1.4 H GFR Calculation 60 Glucose 87 POC Glucose 127 H Calcium 8.0 L POC WB Ioniz Calcium 1.13 L Total Bilirubin 0.3 AST 20 ALT 14 Alkaline Phosphatase 61 Total Protein 5.2 L Albumin 3.2 Globulin 2.0 L Albumin/Globulin Ratio 1.6 11/15/22 11/15/22 11/15/22 13:01 13:01 00:18 WBC 9.4 RBC 2.18 L Hgb 6.6 L* 10.1 L Hct 20.6 L* 31.4 L POC Hct MCV 94.5 MCH 30.3 MCHC 32.0 RDW 14.3 Plt Count 249 MPV 9.9 Immature Gran % (Auto) 0.4 Neut % (Auto) 79.7 H Lymph % (Auto) 11.4 L Mckenzie % (Auto) 8.0 Eos % (Auto) 0.3 Baso % (Auto) 0.2 Lymph # (Auto) 1.07 L Mckenzie # (Auto) 0.75 Eos # (Auto) 0.03 Baso # (Auto) 0.02 Immature Gran # 0.04 Absolute Neutrophils 7.44 PT 13.6 INR 1.0 POC Sodium Sodium POC Potassium Potassium POC Chloride Chloride Carbon Dioxide POC Total CO2 Anion Gap POC BUN BUN Creatinine POC Creatinine GFR Calculation Glucose POC Glucose Calcium POC WB Ioniz Calcium Total Bilirubin AST ALT Alkaline Phosphatase Total Protein Albumin Globulin Albumin/Globulin Ratio Discharge Plan Patient/Caregiver Discharge Instructions Activity: increase activity as tolerated Diet: Regular Diet Instructions: Colonoscopy (GEN), Upper Endoscopy (GEN) Prescriptions: New pantoprazole [Protonix] 40 mg tablet,delayed release (DR/EC) 40 mg PO QDAY Qty: 30 1RF Continued bupropion HCl 200 mg tablet sustained-release 12 hr 200 mg PO QDAY Qty: 90 3RF fluoxetine 20 mg capsule 20 mg PO QDAY 30 Days Qty: 30 0RF Rx Instructions: take with the 10mg capsule trazodone 50 mg tablet 1 tab PO QPM amlodipine-valsartan 10-320 mg tablet 1 tab PO QDAY Follow Up Plan Follow up with: Anya Barger MD [Primary Care Provider] - (Please call to schedule an appointment if they do not contact you.) Patient Disposition: Home, Self-Care Prognosis: Fair Rehab Potential: Good I certify that the patient requires SNF services: No Overall status at discharge: patient is back to baseline Discharge Orders: Discharge Order (Routine); Ordered 11/16/22 Ordered By: David Chavez
== END 2022-11-16 13:45 | disposition home or self-care (01) | DRG 378 ==
LOC: ED 12:35 → ICU 15:55
PROVIDERS: ADMIT Internal Medicine; ATTEND Internal Medicine